=== PATIENT | male | born 1985 | race African-American/Black ===

== ENCOUNTER 2016-12-02 22:37 | Emergency (ER) | payer MEDICAID ==
[~2016-12-02] VITALS: Ht 175.3 cm; Wt 72.0 kg
[2016-12-02 22:44] VITALS: BP 140/68
== END 2016-12-03 01:00 | disposition left against medical advice (07) ==
LOC: ER 23:21
DX: H57.12 Ocular pain, left eye (principal); Z53.21 Procedure and treatment not carried out due to patient leaving prior to being seen by health care provider

== ENCOUNTER 2016-12-03 05:01 | Emergency (ER) | payer MEDICAID ==
[~2016-12-03] VITALS: Ht 175.3 cm; Wt 73.0 kg
[2016-12-03] MEDS ORDERED: HYDROCODONE/ACETAMINOPHEN 5/325MG TABLET PO ONE (07:00)
[2016-12-03] MEDS ORDERED: TETANUS, DIPHTHERIA, PERTUSSIS VAC/PF 0.5ML (>7YR OLD) IM ONE (07:00)
[2016-12-03] MEDS ORDERED: LIDOCAINE HCL/EPINEPHRINE 1%-EPI 1:100,000 30 ML VIAL INFIL ONE (07:00)
[2016-12-03] MEDS ORDERED: LIDOCAINE HCL 1% 20ML VIAL (Pyxis) INJ INFIL ONE (07:45)
[2016-12-03] MEDS ORDERED: BACITRACIN ZINC OINT UDPKT TOP ONE (09:00)
[2016-12-03 09:16] VITALS: BP 118/71
== END 2016-12-03 09:40 | disposition home or self-care (01) ==
LOC: ER 05:01
DX: S01.412A Laceration without foreign body of left cheek and temporomandibular area, initial encounter (principal); S80.01XA Contusion of right knee, initial encounter; Y08.89XA Assault by other specified means, initial encounter; Y93.89 Activity, other specified; Y92.89 Other specified places as the place of occurrence of the external cause; Y99.8 Other external cause status
CPT/HCPCS: 12011; 70486; 73562; 90471; 90715; 99284; J3490; X7700; Z7610

== ENCOUNTER 2016-12-03 21:11 | Emergency (ER) | payer MEDICAID ==
[~2016-12-03] VITALS: Ht 175.3 cm; Wt 73.0 kg
[2016-12-04] MEDS ORDERED: KETOROLAC 30MG/ML VIAL IV ONE
[2016-12-04] MEDS ORDERED: ONDANSETRON 4MG ODT PO PRN
[2016-12-04] MEDS ORDERED: ONDANSETRON 4MG ODT PO ONE (00:45)
[2016-12-04] MEDS ORDERED: KETOROLAC 30MG/ML VIAL IM ONE (00:45)
[2016-12-04 03:45] VITALS: BP 129/81
== END 2016-12-04 03:53 | disposition home or self-care (01) ==
LOC: ER 21:11
DX: S80.11XA Contusion of right lower leg, initial encounter (principal); S09.8XXA Other specified injuries of head, initial encounter; D64.9 Anemia, unspecified; R11.0 Nausea; F17.200 Nicotine dependence, unspecified, uncomplicated; X58.XXXA Exposure to other specified factors, initial encounter; Y93.89 Activity, other specified; Y92.89 Other specified places as the place of occurrence of the external cause; Y99.8 Other external cause status
CPT/HCPCS: 96372; 99283; J1885; Q0162; Z7610